=== PATIENT | female | born 1975 | race Caucasian/White ===

== ENCOUNTER 2018-06-11 11:45 | Emergency (ER) | payer MEDICAID ==
[~2018-06-11] VITALS: Ht 167.6 cm; Wt 96.8 kg
--- NOTE | 2018-06-11 12:40 | NUR ---
pt given 1000 ml to drink, ultraaound requesting pt to have a full bladder
--- NOTE | 2018-06-11 12:57 | NUR ---
ultrasound at bedside
[2018-06-11 13:10] LABS: BASOPHILS % (AUTO) 0.4 % (0-1); EOSINOPHILS # (AUTO) 0.1 X10'3 (0-0.9); EOSINOPHILS % (AUTO) 0.8 % (0-6); HEMATOCRIT 36.9 % (35.0-45.0); HEMOGLOBIN 12.3 g/dl (12.0-16.0); LYMPHOCYTES # (AUTO) 1.6 X10'3 (1.1-4.8); MEAN CORPUSCULAR HEMOGLOBIN 29.1 PG (27.0-31.0); MEAN CORPUSCULAR HGB CONC 33.3 g/dL (33.0-36.5); MEAN CORPUSCULAR VOLUME 87.4 FL (78-98); MEAN PLATELET VOLUME 9.8 FL (7.4-10.4); MONOCYTES # (AUTO) 0.4 X10'3 (0-0.9); MONOCYTES % (AUTO) 5.3 % (2-12); NEUTROPHILS # (AUTO) 5.5 X10'3 (1.8-7.7); NEUTROPHILS % (AUTO) 72.5 % (42-75); PLATELET COUNT 249 X10'3 (140-440); RED BLOOD COUNT 4.22 X10'6 (4.20-5.60); WHITE BLOOD COUNT 7.6 X10'3 (4.5-11.0)
[2018-06-11 13:15] LABS: ALANINE AMINOTRANSFERASE 21 U/L (12-78); ALBUMIN 3.8 G/DL (3.4-5.0); ALKALINE PHOSPHATASE 64 IU/L (46-116); ANION GAP 7 (8-16); ASPARTATE AMINO TRANSFERASE 14 U/L (10-37); BILIRUBIN,TOTAL 0.2 MG/DL (0.1-1.0); BLOOD UREA NITROGEN 12 MG/DL (7-18); BUN/CREATININE RATIO 15.8 (6.6-38.0); CALCIUM 9.2 MG/DL (8.5-10.1); CHLORIDE 104 MMOL/L (99-107); CREATININE 0.76 MG/DL (0.40-0.90); GLUCOSE 113 MG/DL (70-104); POTASSIUM 3.8 MMOL/L (3.5-5.1); SODIUM 138 MMOL/L (135-145); TOTAL CARBON DIOXIDE 27.1 MMOL/L (24-32); TOTAL PROTEIN 7.5 G/DL (6.4-8.2); eGFR 83 ML/MIN
[2018-06-11 13:52] VITALS: BP 122/88
== END 2018-06-11 13:54 | disposition home or self-care (01) ==
LOC: ER 11:45
DX: N92.0 Excessive and frequent menstruation with regular cycle (principal); Z90.49 Acquired absence of other specified parts of digestive tract; Z98.51 Tubal ligation status; Z88.0 Allergy status to penicillin
CPT/HCPCS: 36415; 76830; 76856; 80053; 85025; 99284

== ENCOUNTER 2018-06-13 17:32 | Emergency (ER) | payer MEDICAID ==
[~2018-06-13] VITALS: Ht 167.6 cm; Wt 96.8 kg
[2018-06-13 18:09] VITALS: BP 112/70
[2018-06-13 19:05] LABS: BASOPHILS % (AUTO) 0.7 % (0-1); EOSINOPHILS # (AUTO) 0.1 X10'3 (0-0.9); EOSINOPHILS % (AUTO) 1.4 % (0-6); HEMATOCRIT 32.9 % (35.0-45.0); LYMPHOCYTES # (AUTO) 1.7 X10'3 (1.1-4.8); LYMPHOCYTES % (AUTO) 25.9 % (21-51); MEAN CORPUSCULAR HEMOGLOBIN 29.5 PG (27.0-31.0); MEAN CORPUSCULAR HGB CONC 33.5 g/dL (33.0-36.5); MEAN CORPUSCULAR VOLUME 88.1 FL (78-98); MEAN PLATELET VOLUME 9.8 FL (7.4-10.4); MONOCYTES # (AUTO) 0.3 X10'3 (0-0.9); MONOCYTES % (AUTO) 5.3 % (2-12); NEUTROPHILS # (AUTO) 4.3 X10'3 (1.8-7.7); NEUTROPHILS % (AUTO) 66.7 % (42-75); PLATELET COUNT 242 X10'3 (140-440); RED BLOOD COUNT 3.74 X10'6 (4.20-5.60); RED CELL DISTRIBUTION WIDTH 16.1 % (11.5-14.5); WHITE BLOOD COUNT 6.4 X10'3 (4.5-11.0)
[2018-06-13 19:09] LABS: ANION GAP 4 (8-16); BLOOD UREA NITROGEN 13 MG/DL (7-18); BUN/CREATININE RATIO 19.7 (6.6-38.0); CHLORIDE 106 MMOL/L (99-107); CREATININE 0.66 MG/DL (0.40-0.90); GLUCOSE 92 MG/DL (70-104); POTASSIUM 4.2 MMOL/L (3.5-5.1); SODIUM 139 MMOL/L (135-145); TOTAL CARBON DIOXIDE 29.5 MMOL/L (24-32)
[2018-06-13 19:10] LABS: ALANINE AMINOTRANSFERASE 16 U/L (12-78); ALBUMIN 3.4 G/DL (3.4-5.0); ALKALINE PHOSPHATASE 60 IU/L (46-116); ASPARTATE AMINO TRANSFERASE 9 U/L (10-37); BILIRUBIN,TOTAL 0.1 MG/DL (0.1-1.0); CALCIUM 9.1 MG/DL (8.5-10.1); TOTAL PROTEIN 6.8 G/DL (6.4-8.2); eGFR > 90 ML/MIN
[2018-06-13] MEDS ORDERED: medroxyprogesterone acet. 2.5mg tablet PO STA (20:25)
[2018-06-13 21:06] LABS: URINE HCG NEGATIVE (NEG)
[2018-06-13 21:15] LABS: CLARITY,URINE SLIGHTLY CLOUDY (Clear); COLOR,URINE PINK (Yellow); GLUCOSE, URINE NEGATIVE (Neg); KETONES,URINE NEGATIVE (Neg); LEUKOCYTE ESTERASE ,URINE MODERATE (Neg); NITRITES, URINE NEGATIVE (Neg); OCCULT BLOOD,URINE LARGE (Neg); PROTEIN,URINE NEGATIVE (Neg); UROBILINOGEN,URINE 0.2 E.U/dL (0.2-1.0)
[2018-06-13 21:16] LABS: UA COLLECTION TYPE NON-SPECIFIED
[2018-06-13 21:24] LABS: RBC,URINE TNTC /HPF (0-2); SQUAMOUS EPITHELIAL CELL,UR MODERATE /LPF (FEW)
[2018-06-13 21:25] LABS: BACTERIA,URINE FEW /HPF (Neg)
[2018-06-13] MEDS ORDERED: MEDR10TA PO (21:27)
== END 2018-06-13 21:50 | disposition home or self-care (01) ==
LOC: ER 17:33
DX: N92.0 Excessive and frequent menstruation with regular cycle (principal); F17.200 Nicotine dependence, unspecified, uncomplicated; Z88.0 Allergy status to penicillin; Z90.49 Acquired absence of other specified parts of digestive tract; Z98.51 Tubal ligation status; Z98.890 Other specified postprocedural states
CPT/HCPCS: 36415; 80053; 81001; 81025; 85025; 85610; 87077; 87088; 87186; 99283

== ENCOUNTER 2018-11-12 13:36 | Emergency (ER) | payer MEDICAID ==
[~2018-11-12] VITALS: Ht 167.6 cm; Wt 98.6 kg
[~2018-11-12 13:36] MED LIST: ALPR-624 PO; DULO20CA50 PO; FLUO20CA39 PO; IBUP-1984 PO; LEVO125T PO; MEDR10TA PO; ONDA4TAB12 PO
[2018-11-12 14:33] VITALS: BP 121/91
--- NOTE | 2018-11-12 14:33 | NUR ---
PT IS RESTING QUIETLY ON GURNEY, RESP EVEN AND UNLABORED, WAITING FOR LAB RESULTS
--- NOTE | 2018-11-12 14:34 | NUR ---
PT C/O LUMP IN THROAT, RT SIDED CHEST PAIN "SHARP" INCREASES WHEN TAKING DEEP BREATH, PT WAS INTUBATED RECENTLY FOR PROCEDURE
[2018-11-12 14:50] LABS: BASOPHILS % (AUTO) 0.4 % (0-1); EOSINOPHILS # (AUTO) 0.1 X10'3 (0-0.9); EOSINOPHILS % (AUTO) 1.6 % (0-6); HEMATOCRIT 34.9 % (35.0-45.0); HEMOGLOBIN 11.6 g/dl (12.0-16.0); LYMPHOCYTES # (AUTO) 1.4 X10'3 (1.1-4.8); LYMPHOCYTES % (AUTO) 16.1 % (21-51); MEAN CORPUSCULAR HEMOGLOBIN 29.4 PG (27.0-31.0); MEAN CORPUSCULAR HGB CONC 33.2 g/dL (33.0-36.5); MEAN CORPUSCULAR VOLUME 88.5 FL (78-98); MEAN PLATELET VOLUME 8.9 FL (7.4-10.4); MONOCYTES # (AUTO) 0.5 X10'3 (0-0.9); MONOCYTES % (AUTO) 5.6 % (2-12); NEUTROPHILS # (AUTO) 6.9 X10'3 (1.8-7.7); NEUTROPHILS % (AUTO) 76.3 % (42-75); PLATELET COUNT 272 X10'3 (140-440); RED BLOOD COUNT 3.95 X10'6 (4.20-5.60); RED CELL DISTRIBUTION WIDTH 14.5 % (11.5-14.5)
[2018-11-12 14:59] LABS: D-DIMER 0.33 MG/L FEU (0-0.50)
[2018-11-12 15:06] LABS: ALANINE AMINOTRANSFERASE 31 U/L (12-78); ALBUMIN 3.8 G/DL (3.4-5.0); ALKALINE PHOSPHATASE 64 IU/L (46-116); ANION GAP 9 (8-16); ASPARTATE AMINO TRANSFERASE 17 U/L (10-37); BILIRUBIN,TOTAL 0.4 MG/DL (0.1-1.0); BLOOD UREA NITROGEN 8 MG/DL (7-18); BUN/CREATININE RATIO 10.5 (6.6-38.0); CALCIUM 9.1 MG/DL (8.5-10.1); CHLORIDE 103 MMOL/L (99-107); CREATININE 0.76 MG/DL (0.40-0.90); GLUCOSE 116 MG/DL (70-104); MAGNESIUM 1.8 MG/DL (1.5-2.4); POTASSIUM 3.7 MMOL/L (3.5-5.1); SODIUM 141 MMOL/L (135-145); TOTAL CARBON DIOXIDE 29.3 MMOL/L (24-32); TOTAL PROTEIN 7.6 G/DL (6.4-8.2); eGFR 83 ML/MIN
== END 2018-11-12 15:31 | disposition home or self-care (01) ==
LOC: ER 13:37
DX: R07.81 Pleurodynia (principal); R07.0 Pain in throat; E07.9 Disorder of thyroid, unspecified; F32.9 Major depressive disorder, single episode, unspecified; C53.9 Malignant neoplasm of cervix uteri, unspecified; Z88.0 Allergy status to penicillin; Z79.899 Other long term (current) drug therapy; Z90.49 Acquired absence of other specified parts of digestive tract; Z90.710 Acquired absence of both cervix and uterus; Z98.51 Tubal ligation status; Z98.890 Other specified postprocedural states
CPT/HCPCS: 36415; 70360; 71045; 80053; 83735; 85025; 85379; 93005; 99284

== ENCOUNTER 2019-01-25 11:25 | Emergency (ER) | payer MEDICAID ==
[~2019-01-25] VITALS: Ht 167.6 cm; Wt 94.0 kg
--- NOTE | 2019-01-25 11:55 | NUR ---
awaiting ed md.
[2019-01-25] MEDS ORDERED: chlordiazePOXIDE 25mg capsule PO ONE ×2 (12:30→13:35)
[2019-01-25] MEDS ORDERED: ALPRAZolam 0.5mg tablet PO ONE (12:30)
[2019-01-25] MEDS ORDERED: ALPR1TAB2 PO ×2 (13:35→14:02)
[2019-01-25 14:21] VITALS: BP 125/69
== END 2019-01-25 14:23 | disposition home or self-care (01) ==
LOC: ER 11:25
DX: F13.239 Sedative, hypnotic or anxiolytic dependence with withdrawal, unspecified (principal); F32.9 Major depressive disorder, single episode, unspecified; Z90.49 Acquired absence of other specified parts of digestive tract; Z90.710 Acquired absence of both cervix and uterus; Z98.890 Other specified postprocedural states; Z98.51 Tubal ligation status; Z88.0 Allergy status to penicillin; Z79.899 Other long term (current) drug therapy
CPT/HCPCS: 93005; 99284

== ENCOUNTER 2019-08-14 17:56 | Emergency (ER) | payer MEDICAID ==
[~2019-08-14] VITALS: Ht 167.6 cm; Wt 120.0 kg
[~2019-08-14 17:56] MED LIST changes: +ALPR1TAB2 PO
--- NOTE | 2019-08-14 18:13 | NUR ---
pt resting quietly on gurney, waiting for xray
[2019-08-14] MEDS ORDERED: ibuprofen tablet 400 MG TABLET PO ONE (18:15)
[2019-08-14 19:20] VITALS: BP 128/94
== END 2019-08-14 19:23 | disposition home or self-care (01) ==
LOC: ER 17:57
DX: M25.531 Pain in right wrist (principal); M79.641 Pain in right hand; M25.562 Pain in left knee; M79.644 Pain in right finger(s); M25.522 Pain in left elbow; F32.9 Major depressive disorder, single episode, unspecified; Z85.41 Personal history of malignant neoplasm of cervix uteri; Z90.49 Acquired absence of other specified parts of digestive tract; Z90.710 Acquired absence of both cervix and uterus; Z98.51 Tubal ligation status; Z98.890 Other specified postprocedural states; Z72.89 Other problems related to lifestyle; Z88.0 Allergy status to penicillin; Z79.899 Other long term (current) drug therapy
CPT/HCPCS: 29125; 73110; 73130; 73564; 99284

== ENCOUNTER 2020-07-13 20:09 | Emergency (ER) | payer MEDICAID ==
[~2020-07-13] VITALS: Ht 167.6 cm; Wt 96.4 kg
[2020-07-13 20:59] LABS: BASOPHILS % (AUTO) 0.3 % (0-1); EOSINOPHILS # (AUTO) 0.1 X10'3 (0-0.9); EOSINOPHILS % (AUTO) 1.1 % (0-6); HEMATOCRIT 39.8 % (35.0-45.0); HEMOGLOBIN 13.3 g/dl (12.0-16.0); LYMPHOCYTES # (AUTO) 1.4 X10'3 (1.1-4.8); LYMPHOCYTES % (AUTO) 11.7 % (21-51); MEAN CORPUSCULAR HEMOGLOBIN 31.1 PG (27.0-31.0); MEAN CORPUSCULAR HGB CONC 33.5 g/dL (33.0-36.5); MEAN CORPUSCULAR VOLUME 92.8 FL (78-98); MEAN PLATELET VOLUME 9.4 FL (7.4-10.4); MONOCYTES # (AUTO) 0.6 X10'3 (0-0.9); MONOCYTES % (AUTO) 4.6 % (2-12); NEUTROPHILS # (AUTO) 9.9 X10'3 (1.8-7.7); NEUTROPHILS % (AUTO) 82.3 % (42-75); PLATELET COUNT 246 X10'3 (140-440); RED BLOOD COUNT 4.29 X10'6 (4.20-5.60); RED CELL DISTRIBUTION WIDTH 13.1 % (11.5-14.5)
[2020-07-13 21:10] LABS: ALANINE AMINOTRANSFERASE 32 U/L (12-78); ALBUMIN/GLOBULIN RATIO 1.1 (1.1-1.5); ALKALINE PHOSPHATASE 85 IU/L (46-116); ANION GAP 7 (8-16); ASPARTATE AMINO TRANSFERASE 38 U/L (10-37); BILIRUBIN,TOTAL 0.3 MG/DL (0.1-1.0); BLOOD UREA NITROGEN 9 MG/DL (7-18); BUN/CREATININE RATIO 10.5 (6.6-38.0); CALCIUM 9.3 MG/DL (8.5-10.1); CHLORIDE 104 MMOL/L (99-107); CREATININE 0.86 MG/DL (0.40-0.90); GLUCOSE 121 MG/DL (70-104); LIPASE 298 U/L (73-393); POTASSIUM 3.7 MMOL/L (3.5-5.1); SODIUM 139 MMOL/L (135-145); TOTAL CARBON DIOXIDE 28.5 MMOL/L (24-32); TOTAL PROTEIN 7.8 G/DL (6.4-8.2); eGFR 72 ML/MIN
[2020-07-13 21:24] LABS: URINE HCG NEGATIVE (NEG)
[2020-07-13 21:26] LABS: CLARITY,URINE CLOUDY (Clear); COLOR,URINE YELLOW (Yellow); GLUCOSE, URINE NEGATIVE (Neg); KETONES,URINE NEGATIVE (Neg); LEUKOCYTE ESTERASE ,URINE LARGE (Neg); NITRITES, URINE NEGATIVE (Neg); OCCULT BLOOD,URINE TRACE-INTACT (Neg); PROTEIN,URINE NEGATIVE (Neg); UROBILINOGEN,URINE 0.2 E.U/dL (0.2-1.0)
[2020-07-13 21:28] LABS: UA COLLECTION TYPE CLN CATCH MIDSTREAM
[2020-07-13 21:43] LABS: BACTERIA,URINE 1+ /HPF (Neg); RBC,URINE 0-2 /HPF (0-2); SQUAMOUS EPITHELIAL CELL,UR MODERATE /LPF (FEW)
[2020-07-13 21:44] LABS: MUCUS STRANDS FEW /LPF (Neg)
[2020-07-13 22:32] VITALS: BP 122/86
== END 2020-07-13 22:35 | disposition home or self-care (01) ==
LOC: ER 20:09
DX: R10.10 Upper abdominal pain, unspecified (principal); R55 Syncope and collapse; Z87.891 Personal history of nicotine dependence; Z90.49 Acquired absence of other specified parts of digestive tract; Z90.710 Acquired absence of both cervix and uterus; Z98.51 Tubal ligation status; Z98.890 Other specified postprocedural states; Z88.0 Allergy status to penicillin; Z79.899 Other long term (current) drug therapy
CPT/HCPCS: 36415; 80053; 81001; 81025; 83690; 85025; 87088; 93005; 99283; 99284

== ENCOUNTER 2021-01-05 13:49 | Emergency (ER) | payer MEDICAID, OTHER ==
[~2021-01-05] VITALS: Ht 167.6 cm; Wt 97.7 kg
[2021-01-05 14:12] VITALS: BP 125/92
[2021-01-05 14:58] LABS: BASOPHILS # (AUTO) 0.1 X10'3 (0-0.2); EOSINOPHILS # (AUTO) 0.2 X10'3 (0-0.9); EOSINOPHILS % (AUTO) 2.4 % (0-6); HEMATOCRIT 42.3 % (35.0-45.0); HEMOGLOBIN 14.3 g/dl (12.0-16.0); LYMPHOCYTES # (AUTO) 1.8 X10'3 (1.1-4.8); LYMPHOCYTES % (AUTO) 25.9 % (21-51); MEAN CORPUSCULAR HEMOGLOBIN 31.6 PG (27.0-31.0); MEAN CORPUSCULAR HGB CONC 33.7 g/dL (33.0-36.5); MEAN CORPUSCULAR VOLUME 93.8 FL (78-98); MONOCYTES # (AUTO) 0.4 X10'3 (0-0.9); MONOCYTES % (AUTO) 5.6 % (2-12); NEUTROPHILS # (AUTO) 4.6 X10'3 (1.8-7.7); NEUTROPHILS % (AUTO) 65.1 % (42-75); PLATELET COUNT 257 X10'3 (140-440); RED BLOOD COUNT 4.52 X10'6 (4.20-5.60); RED CELL DISTRIBUTION WIDTH 13.3 % (11.5-14.5); WHITE BLOOD COUNT 7.1 X10'3 (4.5-11.0)
[2021-01-05 15:02] LABS: ALANINE AMINOTRANSFERASE 35 U/L (12-78); ALKALINE PHOSPHATASE 82 IU/L (46-116); ANION GAP 9 (8-16); ASPARTATE AMINO TRANSFERASE 18 U/L (10-37); BILIRUBIN,TOTAL 0.2 MG/DL (0.1-1.0); BLOOD UREA NITROGEN 11 MG/DL (7-18); BUN/CREATININE RATIO 16.2 (6.6-38.0); CALCIUM 9.3 MG/DL (8.5-10.1); CHLORIDE 105 MMOL/L (99-107); CREATININE 0.68 MG/DL (0.40-0.90); GLUCOSE 128 MG/DL (70-104); POTASSIUM 3.9 MMOL/L (3.5-5.1); SODIUM 140 MMOL/L (135-145); TOTAL CARBON DIOXIDE 26.4 MMOL/L (24-32); TOTAL PROTEIN 7.9 G/DL (6.4-8.2); eGFR > 90 ML/MIN
[2021-01-05] MEDS ORDERED: sucralfate 1 gm tablet PO ONE (15:35)
[2021-01-05] MEDS ORDERED: mag hydrox/Alum hydrox/simeth 30ml oral suspension PO ONE (15:35)
[2021-01-05] MEDS ORDERED: LIDOcaine Viscous 15ml cup MM ONE (15:35)
[2021-01-05] MEDS ORDERED: PANT-47 PO (15:36)
== END 2021-01-05 15:57 | disposition home or self-care (01) ==
LOC: ER 13:50
DX: R07.89 Other chest pain (principal); R11.0 Nausea; R06.09 Other forms of dyspnea; Z87.410 Personal history of cervical dysplasia; Z90.49 Acquired absence of other specified parts of digestive tract; Z90.710 Acquired absence of both cervix and uterus; Z98.51 Tubal ligation status; Z88.0 Allergy status to penicillin; Z79.899 Other long term (current) drug therapy
CPT/HCPCS: 36415; 71045; 80053; 83880; 84484; 85025; 93005; 99285

== ENCOUNTER 2021-09-15 03:12 | Emergency (ER) | payer MEDICAID ==
[~2021-09-15 03:12] MED LIST changes: +PANT-47 PO
== END 2021-09-15 04:37 | disposition left against medical advice (07) ==
LOC: ER 03:12
DX: Z00.00 Encounter for general adult medical examination without abnormal findings (principal); Z53.21 Procedure and treatment not carried out due to patient leaving prior to being seen by health care provider

== ENCOUNTER 2021-11-01 14:17 | Inpatient (IN) | payer MEDICAID ==
[~2021-11-01] VITALS: Ht 167.6 cm; Wt 100.0 kg
--- NOTE | 2021-11-01 14:40 | NUR ---
Patient went to CT on monitor with stroke rn remy
--- NOTE | 2021-11-01 15:02 | NUR ---
tele neuro at bedside for consult
[2021-11-01 15:08] LABS: ALANINE AMINOTRANSFERASE 13 U/L (12-78); ALBUMIN 4.1 G/DL (3.4-5.0); ALKALINE PHOSPHATASE 65 IU/L (46-116); ANION GAP 6 (8-16); ASPARTATE AMINO TRANSFERASE 12 U/L (10-37); BILIRUBIN,TOTAL 0.3 MG/DL (0.1-1.0); BLOOD UREA NITROGEN 13 MG/DL (7-18); BUN/CREATININE RATIO 18.1 (6.6-38.0); CHLORIDE 103 MMOL/L (99-107); CREATININE 0.72 MG/DL (0.40-0.90); GLUCOSE 126 MG/DL (70-104); POTASSIUM 4.4 MMOL/L (3.5-5.1); SODIUM 136 MMOL/L (135-145); TOTAL CARBON DIOXIDE 26.7 MMOL/L (24-32); TOTAL PROTEIN 8.1 G/DL (6.4-8.2); eGFR 88 ML/MIN
[2021-11-01 15:10] LABS: BASOPHILS % (AUTO) 0.4 % (0-1); EOSINOPHILS # (AUTO) 0.1 X10'3 (0-0.9); HEMATOCRIT 39.1 % (35.0-45.0); HEMOGLOBIN 13.5 g/dl (12.0-16.0); LYMPHOCYTES # (AUTO) 1.3 X10'3 (1.1-4.8); LYMPHOCYTES % (AUTO) 13.4 % (21-51); MEAN CORPUSCULAR HEMOGLOBIN 32.6 PG (27.0-31.0); MEAN CORPUSCULAR HGB CONC 34.7 g/dL (33.0-36.5); MEAN CORPUSCULAR VOLUME 93.9 FL (78-98); MEAN PLATELET VOLUME 8.7 FL (7.4-10.4); MONOCYTES # (AUTO) 0.4 X10'3 (0-0.9); MONOCYTES % (AUTO) 4.1 % (2-12); NEUTROPHILS # (AUTO) 8.1 X10'3 (1.8-7.7); NEUTROPHILS % (AUTO) 81.1 % (42-75); PLATELET COUNT 267 X10'3 (140-440); RED BLOOD COUNT 4.16 X10'6 (4.20-5.60); RED CELL DISTRIBUTION WIDTH 13.1 % (11.5-14.5)
[2021-11-01 15:19] LABS: APTT 29 SECONDS (22-32)
[2021-11-01] MEDS ORDERED: normal saline 1000ML IV soln IVB ONE (15:35)
[2021-11-01] MEDS ORDERED: aspirin 325mg tablet PO ONE (15:35)
[2021-11-01] MEDS ORDERED: LORazepam 2 mg/ml vial IV ONE (15:35)
[2021-11-01] MEDS ORDERED: magnesium 2GM in 50ml NS 50 ML IV PRN (15:45)
[2021-11-01] MEDS ORDERED: magnesium Cl slow-release 64mg tablet PO PRN (15:45)
[2021-11-01] MEDS ORDERED: ondansetron/PF 4mg/2ml inj IV PRN (15:45)
[2021-11-01] MEDS ORDERED: potassium CL 10mEq/100ml bag 100 ML IV PRN (15:45)
[2021-11-01] MEDS ORDERED: HYDROcodone/acetaminophen 10/325mg tab PO PRN (15:45)
[2021-11-01] MEDS ORDERED: HYDROcodone/acetaminophen 5mg/325mg tablet PO PRN (15:45)
[2021-11-01] MEDS ORDERED: acetaminophen 325mg tablet PO PRN ×3 (15:45→19:05)
[2021-11-01] MEDS: aspirin 81mg, enteric-coated 1 TAB TABLET.DR PO SCH (15:45)
[2021-11-01] MEDS ORDERED: mag hydrox/Alum hydrox/simeth 30ml oral suspension PO PRN (15:45)
[2021-11-01] MEDS ORDERED: POTASSIUM BICARB 20meq eff tab 20 MEQ TABLET.EFF PO PRN ×2 (15:45)
[2021-11-01] MEDS ORDERED: magnesium 4gm in 100ml NS 100 ML IV PRN (15:45)
[2021-11-01] MEDS ORDERED: magnesium hydroxide 30ml (MOM) UD suspension PO PRN (15:45)
[2021-11-01 16:17] LABS: MAGNESIUM 1.8 MG/DL (1.5-2.4)
[2021-11-01 16:22] LABS: HEMOGLOBIN A1C 6.2 % (4.5-6.2)
[2021-11-01] MEDS ORDERED: DULO-31 PO (16:22)
[2021-11-01] MEDS: atorvastatin 20mg tablet PO SCH (16:22)
[2021-11-01] MEDS ORDERED: LEVO175T7 PO (16:29)
[2021-11-01] MEDS ORDERED: BREX2TAB PO (16:29)
[2021-11-01] MEDS ORDERED: GABA300C PO (16:29)
[2021-11-01] MEDS ORDERED: PRAZ1CAP5 PO (16:29)
[2021-11-01 16:30] LABS: CLARITY,URINE SLIGHTLY CLOUDY (Clear); COLOR,URINE YELLOW (Yellow); GLUCOSE, URINE NEGATIVE (Neg); KETONES,URINE NEGATIVE (Neg); LEUKOCYTE ESTERASE ,URINE NEGATIVE (Neg); NITRITES, URINE NEGATIVE (Neg); OCCULT BLOOD,URINE NEGATIVE (Neg); PROTEIN,URINE NEGATIVE (Neg); UA COLLECTION TYPE CLN CATCH MIDSTREAM; UROBILINOGEN,URINE 0.2 E.U/dL (0.2-1.0)
[2021-11-01 16:35] LABS: URINE AMPHETAMINE SCREEN NEGATIVE (Neg); URINE BARBITUATE SCREEN NEGATIVE (Neg); URINE BENZODIAZEPINES SCREEN NEGATIVE (Neg); URINE CANNABINOID SCREEN NEGATIVE (Neg); URINE COCAINE SCREEN NEGATIVE (Neg); URINE METHADONE SCREEN NEGATIVE (Neg); URINE OPIATE SCREEN NEGATIVE (Neg); URINE PHENCYCLIDINE SCREEN NEGATIVE (Neg)
[2021-11-01 16:41] LABS: BACTERIA,URINE FEW /HPF (Neg); RBC,URINE 0-2 /HPF (0-2); SQUAMOUS EPITHELIAL CELL,UR MODERATE /LPF (FEW); WBC,URINE 0-4 /HPF (0-4)
[2021-11-01] MEDS ORDERED: ALBU90AE2 INH (16:51)
[2021-11-01] MEDS ORDERED: nicotine 14mg patch - 24hr TD ONE (17:05)
--- NOTE | 2021-11-01 17:45 | NUR ---
UTI treated with 1g rocephin sacral wound treated by wound care team at [facility] last dialysis last monday, non compliant with appts nyastin powder for yeast infection altered from baseline mentally
--- NOTE | 2021-11-01 17:45 | NUR ---
10/28 d/c yannick for chest pain for AR
--- NOTE | 2021-11-01 17:47 | NUR ---
[facility] [phone]
[2021-11-01] MEDS: K and/or MAG REPLACEMENT MC SCH (18:17)
[2021-11-01] MEDS: docusate sod 100mg capsule PO SCH (18:18)
[2021-11-01] MEDS: LORazepam 2 mg/ml vial IV PRN (20:51)
[2021-11-01 21:59] VITALS: BP 111/55
--- NOTE | 2021-11-02 06:45 | NUR ---
Patient in room ORTHO 4006. I have received report from Maria Guadalupe PRITCHETT and had the opportunity to ask questions and assume patient care.
[2021-11-02 07:00] VITALS: BP 126/83
[2021-11-02 07:52] LABS: BASOPHILS % (AUTO) 0.3 % (0-1); EOSINOPHILS # (AUTO) 0.2 X10'3 (0-0.9); EOSINOPHILS % (AUTO) 1.8 % (0-6); HEMATOCRIT 40.5 % (35.0-45.0); HEMOGLOBIN 13.9 g/dl (12.0-16.0); LYMPHOCYTES # (AUTO) 1.6 X10'3 (1.1-4.8); LYMPHOCYTES % (AUTO) 18.9 % (21-51); MEAN CORPUSCULAR HEMOGLOBIN 32.5 PG (27.0-31.0); MEAN CORPUSCULAR HGB CONC 34.4 g/dL (33.0-36.5); MEAN CORPUSCULAR VOLUME 94.5 FL (78-98); MONOCYTES # (AUTO) 0.4 X10'3 (0-0.9); MONOCYTES % (AUTO) 4.8 % (2-12); NEUTROPHILS # (AUTO) 6.3 X10'3 (1.8-7.7); NEUTROPHILS % (AUTO) 74.2 % (42-75); PLATELET COUNT 241 X10'3 (140-440); RED BLOOD COUNT 4.28 X10'6 (4.20-5.60); RED CELL DISTRIBUTION WIDTH 13.2 % (11.5-14.5); WHITE BLOOD COUNT 8.5 X10'3 (4.5-11.0)
[2021-11-02] MEDS: docusate sod 100mg capsule PO SCH ×2 (08:00→20:00)
[2021-11-02] MEDS: K and/or MAG REPLACEMENT MC SCH ×2 (08:00→19:16)
[2021-11-02 08:27] LABS: ALANINE AMINOTRANSFERASE 12 U/L (12-78); ALBUMIN 3.7 G/DL (3.4-5.0); ALKALINE PHOSPHATASE 58 IU/L (46-116); ANION GAP 8 (8-16); ASPARTATE AMINO TRANSFERASE 12 U/L (10-37); BILIRUBIN,TOTAL 0.4 MG/DL (0.1-1.0); BLOOD UREA NITROGEN 11 MG/DL (7-18); BUN/CREATININE RATIO 15.1 (6.6-38.0); CALCIUM 8.7 MG/DL (8.5-10.1); CHLORIDE 104 MMOL/L (99-107); CHOL/HDL RATIO 4.5 (0.00-4.99); CHOLESTEROL 131 MG/DL (0-200); CREATININE 0.73 MG/DL (0.40-0.90); GLUCOSE 137 MG/DL (70-104); HDL CHOLESTEROL 29 MG/DL (35-60); LDL CHOLESTEROL 74 MG/DL (50-100); MAGNESIUM 1.9 MG/DL (1.5-2.4); POTASSIUM 4.2 MMOL/L (3.5-5.1); SODIUM 142 MMOL/L (135-145); TOTAL CARBON DIOXIDE 29.8 MMOL/L (24-32); TOTAL PROTEIN 7.4 G/DL (6.4-8.2); TRIGLYCERIDES 190 MG/DL (20-135); eGFR 86 ML/MIN
[2021-11-02] MEDS: atorvastatin 20mg tablet PO SCH (09:57)
[2021-11-02] MEDS: aspirin 81mg, enteric-coated 1 TAB TABLET.DR PO SCH (09:57)
[2021-11-02] MEDS: enoxaparin 40mg/0.4ml syringe SUBCUT SCH (09:58)
[2021-11-02 10:00] VITALS: BP 118/66
[2021-11-02] MEDS: LORazepam 2 mg/ml vial IV PRN ×2 (10:34→20:44)
[2021-11-02] MEDS ORDERED: albuterol 2.5 MG/3 ML nebule NEB PRN (10:50)
--- NOTE | 2021-11-02 11:11 | NUR ---
Message: [id number] IS IN MRI AND NEEDS MORE SEDATION KADEEM [id number]
[2021-11-02] MEDS ORDERED: haloperidol lactate 5mg/ml inj IM ONE (11:15)
[2021-11-02] MEDS ORDERED: LORazepam 2 mg/ml vial IV ONE (11:15)
--- NOTE | 2021-11-02 11:44 | NUR ---
GAVE PATIENT SECOND DOSE OF ATIVAN FOR MRI.
[2021-11-02] MEDS ORDERED: GADOTERATE MEGLUMINE 10 MMOL/20 ML SYRINGE IV ONE (12:16)
--- NOTE | 2021-11-02 12:26 | NUR ---
Message: [id number] MEENU MACIAS RUBY HAS GOTTEN 2/3 OF THE TEST DONE AND THINKS A WE BIT MORE OF ATIVAN WILL GET HER THROUGH THE MRI OF THE HEAD. [id number]
[2021-11-02] MEDS ORDERED: LORazepam 2 mg/ml vial IV STA (12:35)
[2021-11-02 14:00] VITALS: BP 118/77
[2021-11-02 18:09] VITALS: BP 123/69
--- NOTE | 2021-11-02 18:48 | NUR ---
Problems reprioritized. Patient report given, questions answered & plan of care reviewed with Maria Guadalupe PRITCHETT.
[2021-11-02] MEDS ORDERED: gabapentin 300mg capsule PO SCH (21:00)
[2021-11-02 22:00] VITALS: BP 113/64
[2021-11-03 02:00] VITALS: BP 115/61
--- NOTE | 2021-11-03 06:17 | NUR ---
Received report from SHREYAS Lerma
[2021-11-03 06:25] LABS: BASOPHILS % (AUTO) 0.4 % (0-1); EOSINOPHILS # (AUTO) 0.1 X10'3 (0-0.9); EOSINOPHILS % (AUTO) 1.4 % (0-6); HEMATOCRIT 38.3 % (35.0-45.0); HEMOGLOBIN 13.1 g/dl (12.0-16.0); LYMPHOCYTES # (AUTO) 1.9 X10'3 (1.1-4.8); LYMPHOCYTES % (AUTO) 20.1 % (21-51); MEAN CORPUSCULAR HEMOGLOBIN 32.2 PG (27.0-31.0); MEAN CORPUSCULAR HGB CONC 34.2 g/dL (33.0-36.5); MEAN CORPUSCULAR VOLUME 94.2 FL (78-98); MEAN PLATELET VOLUME 9.2 FL (7.4-10.4); MONOCYTES # (AUTO) 0.6 X10'3 (0-0.9); MONOCYTES % (AUTO) 6.1 % (2-12); NEUTROPHILS # (AUTO) 6.7 X10'3 (1.8-7.7); PLATELET COUNT 237 X10'3 (140-440); RED BLOOD COUNT 4.07 X10'6 (4.20-5.60); RED CELL DISTRIBUTION WIDTH 13.2 % (11.5-14.5); WHITE BLOOD COUNT 9.3 X10'3 (4.5-11.0)
[2021-11-03 06:38] VITALS: BP 92/53
[2021-11-03 06:44] LABS: ALANINE AMINOTRANSFERASE 11 U/L (12-78); ALBUMIN 3.5 G/DL (3.4-5.0); ALKALINE PHOSPHATASE 58 IU/L (46-116); ANION GAP 10 (8-16); ASPARTATE AMINO TRANSFERASE 8 U/L (10-37); BILIRUBIN,TOTAL 0.3 MG/DL (0.1-1.0); BLOOD UREA NITROGEN 11 MG/DL (7-18); BUN/CREATININE RATIO 15.5 (6.6-38.0); CALCIUM 8.6 MG/DL (8.5-10.1); CHLORIDE 105 MMOL/L (99-107); CREATININE 0.71 MG/DL (0.40-0.90); GLUCOSE 129 MG/DL (70-104); POTASSIUM 3.9 MMOL/L (3.5-5.1); SODIUM 143 MMOL/L (135-145); TOTAL CARBON DIOXIDE 27.9 MMOL/L (24-32); TOTAL PROTEIN 6.9 G/DL (6.4-8.2); eGFR 89 ML/MIN
[2021-11-03] MEDS: K and/or MAG REPLACEMENT MC SCH (07:22)
[2021-11-03] MEDS: aspirin 81mg, enteric-coated 1 TAB TABLET.DR PO SCH (07:38)
[2021-11-03] MEDS: atorvastatin 20mg tablet PO SCH (07:38)
[2021-11-03] MEDS: enoxaparin 40mg/0.4ml syringe SUBCUT SCH (07:39)
[2021-11-03] MEDS: docusate sod 100mg capsule PO SCH (07:40)
[2021-11-03] MEDS ORDERED: BREXPIPRAZOLE PO SCH (08:00)
[2021-11-03] MEDS ORDERED: prazosin 1mg capsule PO SCH (08:00)
[2021-11-03] MEDS ORDERED: duloxetine 30mg CAPSULE.DR PO SCH (08:00)
[2021-11-03] MEDS ORDERED: levoTHYROXINE 175mcg tablet PO SCH (08:00)
[2021-11-03] MEDS: LORazepam 2 mg/ml vial IV PRN (08:22)
--- NOTE | 2021-11-03 08:30 | NUR ---
paged pt for pt eval
[2021-11-03 10:00] VITALS: BP 128/72
--- NOTE | 2021-11-03 10:45 | NUR ---
PT eval complete
--- NOTE | 2021-11-03 13:43 | NUR ---
Patient discharged to home, patient ambulated to lobby and left in private vehicle. All discharge instructions given to patient, she verbalized understanding of all instructions given to her. 20 gauge iv removed from right hand cannula intact no complications. Patient was not discharged home on any new medications and an excusal from work was given for monday and monday of this week.
== END 2021-11-03 13:25 | disposition home or self-care (01) | DRG 861 ==
LOC: ER 14:18 → ED HOLD 15:52 → ORTHO 4S 21:30
PROVIDERS: ADMIT Internal Medicine; ATTEND Family Medicine
DX: R53.1 Weakness (principal); E03.9 Hypothyroidism, unspecified; E66.01 Morbid (severe) obesity due to excess calories; R07.89 Other chest pain; F17.210 Nicotine dependence, cigarettes, uncomplicated; F32.A Depression, unspecified; F41.9 Anxiety disorder, unspecified; G62.9 Polyneuropathy, unspecified; J45.909 Unspecified asthma, uncomplicated; G43.009 Migraine without aura, not intractable, without status migrainosus; Z88.0 Allergy status to penicillin; Z79.899 Other long term (current) drug therapy; Z85.41 Personal history of malignant neoplasm of cervix uteri; Z86.73 Personal history of transient ischemic attack (TIA), and cerebral infarction without residual deficits; Z90.710 Acquired absence of both cervix and uterus; Z68.35 Body mass index [BMI] 35.0-35.9, adult; Z90.49 Acquired absence of other specified parts of digestive tract; Z98.51 Tubal ligation status
CPT/HCPCS: 36415; 70450; 70544; 70547; 70553; 71045; 80053; 80061; 80305; 81001; 82948; 83036; 83735; 84443; 85025; 85610; 85730; 87081; 93005; 93306; 96374; 97116; 97161; 97530; 99285; A9575; G0378; J1650; J2060; J7030

== ENCOUNTER 2022-02-27 13:49 | Emergency (ER) | payer MEDICAID ==
[~2022-02-27] VITALS: Ht 167.6 cm; Wt 99.0 kg
[~2022-02-27 13:49] MED LIST changes: +ALBU90AE2 INH; -ALPR-624 PO; -ALPR1TAB2 PO; +BREX2TAB PO; +DULO-31 PO; -DULO20CA50 PO; -FLUO20CA39 PO; +GABA300C PO; -IBUP-1984 PO; -LEVO125T PO; +LEVO175T7 PO; -MEDR10TA PO; -ONDA4TAB12 PO; -PANT-47 PO; +PRAZ1CAP5 PO
[2022-02-27 14:03] VITALS: BP 131/79
[2022-02-27] MEDS ORDERED: acetaminophen 325mg tablet PO ONE (17:25)
[2022-02-27] MEDS ORDERED: ondansetron 4mg rapidly disintigrating tab PO ONE (17:30)
== END 2022-02-27 19:26 | disposition home or self-care (01) ==
LOC: ER 13:49
DX: U07.1 COVID-19 (principal); F31.9 Bipolar disorder, unspecified; Z88.0 Allergy status to penicillin; Z79.899 Other long term (current) drug therapy
CPT/HCPCS: 87502; 87503; 87635; 99283; C9803

== ENCOUNTER 2022-08-31 08:14 | Emergency (ER) | payer MEDICAID ==
[~2022-08-31] VITALS: Ht 167.6 cm; Wt 100.0 kg
[2022-08-31] MEDS: nitroGLYCERIN 0.4mg SUBLingual tab SL PRN ×2 (08:37→09:55)
[2022-08-31 09:02] LABS: BASOPHILS % (AUTO) 0.4 % (0-1); EOSINOPHILS # (AUTO) 0.2 X10'3 (0-0.9); EOSINOPHILS % (AUTO) 1.7 % (0-6); HEMATOCRIT 37.4 % (35.0-45.0); HEMOGLOBIN 12.9 g/dl (12.0-16.0); LYMPHOCYTES # (AUTO) 1.9 X10'3 (1.1-4.8); LYMPHOCYTES % (AUTO) 20.3 % (21-51); MEAN CORPUSCULAR HEMOGLOBIN 32.1 PG (27.0-31.0); MEAN CORPUSCULAR HGB CONC 34.4 g/dL (33.0-36.5); MEAN CORPUSCULAR VOLUME 93.2 FL (78-98); MEAN PLATELET VOLUME 8.9 FL (7.4-10.4); MONOCYTES # (AUTO) 0.4 X10'3 (0-0.9); MONOCYTES % (AUTO) 4.3 % (2-12); NEUTROPHILS % (AUTO) 73.3 % (42-75); PLATELET COUNT 227 X10'3 (140-440); RED BLOOD COUNT 4.01 X10'6 (4.20-5.60); RED CELL DISTRIBUTION WIDTH 13.3 % (11.5-14.5); WHITE BLOOD COUNT 9.5 X10'3 (4.5-11.0)
[2022-08-31 09:16] LABS: ALANINE AMINOTRANSFERASE 23 U/L (12-78); ALBUMIN 3.5 G/DL (3.4-5.0); ALBUMIN/GLOBULIN RATIO 1.1 (1.1-1.5); ALKALINE PHOSPHATASE 66 IU/L (46-116); ANION GAP 5 (8-16); ASPARTATE AMINO TRANSFERASE 11 U/L (10-37); BILIRUBIN,TOTAL 0.5 MG/DL (0.1-1.0); BLOOD UREA NITROGEN 8 MG/DL (7-18); BUN/CREATININE RATIO 8.9 (10.0-20.0); CALCIUM 8.5 MG/DL (8.5-10.1); CHLORIDE 99 MMOL/L (99-107); GLUCOSE 202 MG/DL (70-104); POTASSIUM 3.4 MMOL/L (3.5-5.1); SODIUM 135 MMOL/L (135-145); TOTAL CARBON DIOXIDE 30.7 MMOL/L (24-32); TOTAL PROTEIN 6.8 G/DL (6.4-8.2); eGFR 67 ML/MIN
[2022-08-31] MEDS ORDERED: ondansetron/PF 4mg/2ml inj ONE (09:53)
[2022-08-31] MEDS ORDERED: ondansetron/PF 4mg/2ml inj IV ONE (09:55)
[2022-08-31] MEDS ORDERED: ondansetron 4mg rapidly disintigrating tab PO ONE (10:00)
[2022-08-31 11:48] VITALS: BP 99/66
== END 2022-08-31 11:54 | disposition home or self-care (01) ==
LOC: ER 08:14
DX: R07.89 Other chest pain (principal); F41.9 Anxiety disorder, unspecified; F32.9 Major depressive disorder, single episode, unspecified; Z90.49 Acquired absence of other specified parts of digestive tract; Z90.710 Acquired absence of both cervix and uterus; Z98.51 Tubal ligation status; Z72.89 Other problems related to lifestyle; Z88.0 Allergy status to penicillin; Z79.899 Other long term (current) drug therapy
CPT/HCPCS: 36415; 71045; 80053; 83880; 84484; 85025; 93005; 99285; J2405

== ENCOUNTER 2023-05-24 20:34 | Emergency (ER) | payer MEDICAID ==
[~2023-05-24] VITALS: Ht 167.6 cm; Wt 102.3 kg
[2023-05-24] MEDS: ketorolac trometh inj. 60 MG/2 ML VIAL IM ONE (22:08)
[2023-05-24] MEDS ORDERED: ALBU8HFA INH (23:27)
[2023-05-24] MEDS ORDERED: ACET-3068 PO (23:27)
[2023-05-24] MEDS ORDERED: ONDA8TAB13 PO (23:27)
[2023-05-24 23:53] VITALS: BP 138/82; PULSE 99; RESP 18; TEMP 98.9; O2SAT 97
== END 2023-05-24 23:54 | disposition home or self-care (01) ==
LOC: ER 20:35
DX: J06.9 Acute upper respiratory infection, unspecified (principal); Z20.822 Contact with and (suspected) exposure to COVID-19; E03.9 Hypothyroidism, unspecified; F32.A Depression, unspecified; Z88.1 Allergy status to other antibiotic agents; Z88.0 Allergy status to penicillin; Z79.899 Other long term (current) drug therapy
CPT/HCPCS: 36415; 71045; 87502; 87503; 87811; 96372; 99284; J1885

== ENCOUNTER 2023-09-10 13:04 | Emergency (ER) | payer MEDICAID ==
[~2023-09-10] VITALS: Ht 167.6 cm; Wt 96.5 kg
[~2023-09-10 13:04] MED LIST changes: +ONDA8TAB13 PO
[2023-09-10 13:07] VITALS: BP 139/84; PULSE 131; RESP 16; TEMP 98.7; O2SAT 96
[2023-09-10 13:47] LABS: STREP A SCREEN NEGATIVE (Neg)
[2023-09-10] MEDS ORDERED: ketorolac trometh. 30mg/ml inj. IM ONE (14:35)
[2023-09-10] MEDS: dexamethasone sod phosphate 10mg/ml inj PO STA (14:39)
[2023-09-10] MEDS: ketorolac tromethamine 15mg/ml inj. IM ONE (14:40)
[2023-09-10] MEDS ORDERED: CLIN300C54 PO (14:41)
[2023-09-10] MEDS ORDERED: LIDO15SO9 PO (15:16)
[2023-09-10] MEDS ORDERED: ONDA4TAB12 PO (15:16)
== END 2023-09-10 15:23 | disposition home or self-care (01) ==
LOC: ER 13:05
DX: J03.90 Acute tonsillitis, unspecified (principal); Z88.0 Allergy status to penicillin; Z88.1 Allergy status to other antibiotic agents; Z79.899 Other long term (current) drug therapy; Z79.2 Long term (current) use of antibiotics; Z90.49 Acquired absence of other specified parts of digestive tract; Z90.710 Acquired absence of both cervix and uterus
CPT/HCPCS: 87081; 87880; 96372; 99283; J1100; J1885

== ENCOUNTER 2023-10-09 14:39 | Emergency (ER) | payer MEDICAID ==
[~2023-10-09] VITALS: Ht 167.6 cm; Wt 95.9 kg
[~2023-10-09 14:39] MED LIST changes: -ALBU90AE2 INH; +ALBU90AE3 INH; +LIDO15SO9 PO; +ONDA-243 PO; +ONDA-245 PO; -ONDA8TAB13 PO
[2023-10-09 15:03] LABS: BASOPHILS # (AUTO) 0.1 X10'3 (0-0.2); BASOPHILS % (AUTO) 0.5 % (0-1); EOSINOPHILS # (AUTO) 0.2 X10'3 (0-0.9); EOSINOPHILS % (AUTO) 2.3 % (0-6); HEMATOCRIT 39.7 % (35.0-45.0); HEMOGLOBIN 13.7 g/dl (12.0-16.0); LYMPHOCYTES # (AUTO) 2.2 X10'3 (1.1-4.8); LYMPHOCYTES % (AUTO) 21.9 % (21-51); MEAN CORPUSCULAR HEMOGLOBIN 31.9 PG (27.0-31.0); MEAN CORPUSCULAR HGB CONC 34.5 g/dL (33.0-36.5); MEAN CORPUSCULAR VOLUME 92.3 FL (78-98); MEAN PLATELET VOLUME 8.9 FL (7.4-10.4); MONOCYTES # (AUTO) 0.5 X10'3 (0-0.9); MONOCYTES % (AUTO) 5.1 % (2-12); NEUTROPHILS # (AUTO) 7.1 X10'3 (1.8-7.7); NEUTROPHILS % (AUTO) 70.2 % (42-75); PLATELET COUNT 271 X10'3 (140-440); RED CELL DISTRIBUTION WIDTH 13.4 % (11.5-14.5); WHITE BLOOD COUNT 10.1 X10'3 (4.5-11.0)
[2023-10-09 15:21] LABS: ALANINE AMINOTRANSFERASE 29 U/L (12-78); ALKALINE PHOSPHATASE 63 IU/L (46-116); ANION GAP 10 (8-16); ASPARTATE AMINO TRANSFERASE 18 U/L (10-37); BILIRUBIN,TOTAL 0.3 MG/DL (0.1-1.0); BLOOD UREA NITROGEN 12 MG/DL (7-18); BUN/CREATININE RATIO 14.1 (10.0-20.0); CALCIUM 9.3 MG/DL (8.5-10.1); CHLORIDE 104 MMOL/L (99-107); CREATININE 0.85 MG/DL (0.40-0.90); GLUCOSE 146 MG/DL (70-104); POTASSIUM 3.3 MMOL/L (3.5-5.1); SODIUM 139 MMOL/L (135-145); TOTAL CARBON DIOXIDE 25.4 MMOL/L (24-32); TOTAL PROTEIN 7.9 G/DL (6.4-8.2); eCRCL 77 ML/MIN; eGFR 72 ML/MIN
[2023-10-09 15:24] LABS: PRO BRAIN NATRIURETIC PEPTIDE 81 PG/ML (0-125); PRO BRAIN NATRIURETIC PEPTIDE 83 PG/ML (0-125)
[2023-10-09] MEDS: ondansetron/PF 4mg/2ml inj IV ONE (15:33)
[2023-10-09] MEDS: diphenhydrAMINE 50 mg/ml inj IV ONE (15:33)
[2023-10-09] MEDS: normal saline 1000ml 1,000 ML IV ONE (15:33)
[2023-10-09 16:05] LABS: LIPASE 30 U/L (16-77)
[2023-10-09 17:35] LABS: BILIRUBIN,URINE NEGATIVE (Neg); CLARITY,URINE CLEAR (Clear); COLOR,URINE YELLOW (Yellow); GLUCOSE, URINE NEGATIVE (Neg); KETONES,URINE NEGATIVE (Neg); LEUKOCYTE ESTERASE ,URINE MODERATE (Neg); NITRITES, URINE NEGATIVE (Neg); OCCULT BLOOD,URINE NEGATIVE (Neg); PROTEIN,URINE NEGATIVE (Neg); UROBILINOGEN,URINE 0.2 E.U/dL (0.2-1.0)
[2023-10-09] MEDS: pantoprazole 40mg Tablet.DR PO ONE (17:38)
[2023-10-09 17:40] VITALS: BP 135/86; PULSE 98; RESP 14; TEMP 97.9; O2SAT 99
[2023-10-09 17:40] LABS: UA COLLECTION TYPE CLN CATCH MIDSTREAM
[2023-10-09 17:42] LABS: RBC,URINE 0-2 /HPF (0-2)
[2023-10-09 17:43] LABS: BACTERIA,URINE 1+ /HPF (Neg); SQUAMOUS EPITHELIAL CELL,UR MODERATE /LPF (FEW)
[2023-10-10] MEDS ORDERED: pantoprazole 40mg Tablet.DR PO SCH (07:30)
== END 2023-10-09 18:15 | disposition home or self-care (01) ==
LOC: ER 14:39
DX: R10.13 Epigastric pain (principal); Z79.2 Long term (current) use of antibiotics; Z88.0 Allergy status to penicillin; Z79.899 Other long term (current) drug therapy; Z90.49 Acquired absence of other specified parts of digestive tract; Z90.710 Acquired absence of both cervix and uterus; Z98.51 Tubal ligation status
CPT/HCPCS: 36415; 71045; 80053; 81001; 83690; 83880; 84484; 85025; 87088; 93005; 96361; 96374; 96375; 99285; J1200; J2405; J7030; 87077; 87186

== ENCOUNTER 2024-02-22 11:55 | Emergency (ER) | payer MEDICAID ==
[~2024-02-22] VITALS: Ht 167.6 cm; Wt 95.0 kg
[2024-02-22 11:56] VITALS: BP 142/88; PULSE 108; TEMP 98.7; O2SAT 98
[2024-02-22 13:09] VITALS: RESP 16
[2024-02-22] MEDS: ketorolac trometh 30MG/ML vial 30 MG/ML VIAL IM ONE (13:09)
[2024-02-22] MEDS ORDERED: NAPR-56 PO (14:24)
[2024-02-22] MEDS ORDERED: LIDO700A47 TOP (14:25)
[2024-02-22] MEDS ORDERED: TIZA4TAB11 PO (14:25)
== END 2024-02-22 14:58 | disposition home or self-care (01) ==
LOC: ER 11:55
DX: M54.59 Other low back pain (principal); M25.531 Pain in right wrist; E07.9 Disorder of thyroid, unspecified; F41.9 Anxiety disorder, unspecified; F32.A Depression, unspecified; Z72.89 Other problems related to lifestyle; Z88.0 Allergy status to penicillin; Z88.1 Allergy status to other antibiotic agents; Z90.710 Acquired absence of both cervix and uterus; Z90.49 Acquired absence of other specified parts of digestive tract; Z85.41 Personal history of malignant neoplasm of cervix uteri; Z79.899 Other long term (current) drug therapy; W01.0XXA Fall on same level from slipping, tripping and stumbling without subsequent striking against object, initial encounter; Y93.89 Activity, other specified; Y92.481 Parking lot as the place of occurrence of the external cause; Y99.8 Other external cause status
CPT/HCPCS: 72131; 73110; 73130; 73610; 96372; 99285; J1885

== ENCOUNTER 2024-07-18 15:54 | Emergency (ER) | payer MEDICAID, OTHER ==
[~2024-07-18] VITALS: Ht 167.6 cm; Wt 72.1 kg
[~2024-07-18 15:54] MED LIST changes: +LIDO700A47 TOP; +TIZA4TAB11 PO
[2024-07-18 16:41] LABS: BASOPHILS % (AUTO) 0.6 % (0-1); EOSINOPHILS # (AUTO) 0.1 X10'3 (0-0.9); EOSINOPHILS % (AUTO) 1.9 % (0-6); HEMATOCRIT 41.1 % (35.0-45.0); HEMOGLOBIN 14.1 g/dl (12.0-16.0); LYMPHOCYTES % (AUTO) 26.6 % (21-51); MEAN CORPUSCULAR HEMOGLOBIN 31.3 PG (27.0-31.0); MEAN CORPUSCULAR HGB CONC 34.4 g/dL (33.0-36.5); MEAN CORPUSCULAR VOLUME 90.9 FL (78-98); MEAN PLATELET VOLUME 8.8 FL (7.4-10.4); MONOCYTES # (AUTO) 0.3 X10'3 (0-0.9); MONOCYTES % (AUTO) 3.8 % (2-12); NEUTROPHILS % (AUTO) 67.1 % (42-75); PLATELET COUNT 284 X10'3 (140-440); RED BLOOD COUNT 4.52 X10'6 (4.20-5.60); RED CELL DISTRIBUTION WIDTH 12.9 % (11.5-14.5); WHITE BLOOD COUNT 7.5 X10'3 (4.5-11.0)
[2024-07-18 16:56] LABS: BILIRUBIN,URINE NEGATIVE (Neg); CLARITY,URINE SLIGHTLY CLOUDY (Clear); COLOR,URINE YELLOW (Yellow); GLUCOSE, URINE NEGATIVE (Neg); KETONES,URINE TRACE mg/dl (Neg); LEUKOCYTE ESTERASE ,URINE SMALL (Neg); NITRITES, URINE NEGATIVE (Neg); OCCULT BLOOD,URINE SMALL (Neg); PROTEIN,URINE 100 mg/dl (Neg); UROBILINOGEN,URINE 0.2 E.U/dL (0.2-1.0)
[2024-07-18 16:57] LABS: URINE HCG NEGATIVE (NEG)
[2024-07-18 16:58] LABS: UA COLLECTION TYPE CLN CATCH MIDSTREAM
[2024-07-18 16:59] LABS: ALANINE AMINOTRANSFERASE 85 U/L (12-78); ALBUMIN 4.2 G/DL (3.4-5.0); ALBUMIN/GLOBULIN RATIO 1.3 (1.1-1.5); ALKALINE PHOSPHATASE 110 IU/L (46-116); ANION GAP 10 (8-16); ASPARTATE AMINO TRANSFERASE 22 U/L (10-37); BILIRUBIN,TOTAL 0.5 MG/DL (0.1-1.0); BLOOD UREA NITROGEN 16 MG/DL (7-18); BUN/CREATININE RATIO 11.6 (10.0-20.0); CALCIUM 9.2 MG/DL (8.5-10.1); CHLORIDE 102 MMOL/L (99-107); CREATININE 1.38 MG/DL (0.40-0.90); GLUCOSE 135 MG/DL (70-104); LIPASE 43 U/L (16-77); POTASSIUM 3.8 MMOL/L (3.5-5.1); SODIUM 139 MMOL/L (135-145); TOTAL PROTEIN 7.5 G/DL (6.4-8.2); eCRCL 47 ML/MIN; eGFR 41 ML/MIN
[2024-07-18 17:09] LABS: BACTERIA,URINE 2+ /HPF (Neg); MUCUS STRANDS MODERATE /LPF (Neg); SQUAMOUS EPITHELIAL CELL,UR FEW /LPF (FEW); TRANSITIONAL EPI CELLS,URINE FEW /HPF; WBC,URINE 30-50 /HPF (0-4)
[2024-07-18 17:10] LABS: FINE GRANULAR CAST 0-3 /LPF (NEGATIVE); HYALINE CASTS >30 /LPF (NEGATIVE)
[2024-07-18 17:11] LABS: AMORPHOUS URATES 1+
[2024-07-18] MEDS: ketorolac trometh 30MG/ML vial 30 MG/ML VIAL IV ONE (17:51)
[2024-07-18] MEDS: normal saline 1000ML IV soln IVB ONE (17:52)
[2024-07-18] MEDS ORDERED: SULF1TAB45 PO (18:15)
[2024-07-18] MEDS ORDERED: NITR100C PO (18:22)
[2024-07-18 18:56] VITALS: BP 136/87; PULSE 98; RESP 16; TEMP 97.6; O2SAT 98
== END 2024-07-18 19:01 | disposition home or self-care (01) ==
LOC: ER 15:55
DX: N39.0 Urinary tract infection, site not specified (principal); K59.00 Constipation, unspecified; F41.9 Anxiety disorder, unspecified; F32.A Depression, unspecified; Z88.0 Allergy status to penicillin; Z88.1 Allergy status to other antibiotic agents; Z90.49 Acquired absence of other specified parts of digestive tract; Z90.710 Acquired absence of both cervix and uterus; Z85.41 Personal history of malignant neoplasm of cervix uteri; Z79.899 Other long term (current) drug therapy; Z72.89 Other problems related to lifestyle
CPT/HCPCS: 36415; 74176; 80053; 81001; 81025; 83690; 85025; 87088; 96361; 96374; 99285; J1885; J7030